=== PATIENT | female | born 1960 | race Caucasian/White ===

== ENCOUNTER → 2017-04-23 | Outpatient (CLI) | payer OTHER | LOC: RAD 13:46 | DX: Z12.31 Encounter for screening mammogram for malignant neoplasm of breast (principal) ==

== ENCOUNTER → 2017-05-08 | Outpatient (CLI) | payer OTHER | LOC: MRI 12:04 | DX: M23.304 Other meniscus derangements, unspecified medial meniscus, left knee (principal); M94.262 Chondromalacia, left knee ==

== ENCOUNTER → 2017-11-14 | Outpatient (CLI) | payer OTHER ==
[~2017-11-14] MED LIST: ACCUNEB SO1.25 MG/1 INH; ASPIRIN325 PO; ATIVAN0.5 MG PO; CENTRUM SILVER1 EAC4 PO; CLARITIN10 MG PO; CYCLOBENZAPRINE5 MG PO; HYDROCODONE-AP1 EAC6 PO; MS CONTIN15 MG PO; NEURONTIN 300300 M1 PO; OXYCODONE HCL30 MG PO; PROAIR HFA8.5 GM INH; WELLBUTRIN 100100 MG PO; ZANTAC 150MG T150 MG PO
== END ==
LOC: MRI 06:56 → CAT 07:58 → MRI 14:28
DX: D49.0 Neoplasm of unspecified behavior of digestive system (principal); K86.2 Cyst of pancreas; Z90.49 Acquired absence of other specified parts of digestive tract

== ENCOUNTER → 2017-12-02 | Outpatient (CLI) | payer OTHER | LOC: ULTRA 11:29 | DX: M79.605 Pain in left leg (principal); M79.89 Other specified soft tissue disorders ==

== ENCOUNTER 2018-02-26 05:23 | Inpatient (IN) | payer OTHER ==
[~2018-02-26] VITALS: Ht 160 cm; Wt 78.0 kg
--- NOTE | ~2018-02-26 | O ---
[facility] [place] [address] OPERATIVE REPORT Name: IZAIAH GUY Room #: 407-P [facility] IN M.R.#: [id number] Admission: 02/26/18 Attend Phys: Edil Ochoa MD Discharge: Date of : 60 Report #: [id number] THIS REPORT FOR: //name// CC: Foreign Ochoa DATE OF SERVICE: 02/26/2018 PREOPERATIVE DIAGNOSIS: Painful left medial compartment knee arthroplasty secondary to likely metal allergy. POSTOPERATIVE DIAGNOSIS: Painful left medial compartment knee arthroplasty secondary to likely metal allergy. PROCEDURE: Conversion of a left medial compartment knee arthroplasty to a total knee arthroplasty. SURGEON: Edil Ochoa MD. BREAKFAST HOST: Ashlyn Subramanian PA-C. INDICATIONS FOR ASSISTANCE: Throughout the case, extensive retraction and manipulation of the knee was required. This was afforded to me by my reproductive healthcare assistant. ANESTHESIA: LMA with an adductor canal block. IMPLANTS: [employer] size 5 Legion Oxinium posterior stabilized femur, a size 3 tibia, size 13 polyethylene and a size 32 patella. TOURNIQUET TIME: 85 minutes. ESTIMATED BLOOD LOSS: 25 mL. COMPLICATIONS: None. SPECIMENS: Intraoperative cultures as well as intraoperative frozen section was performed showing to have only 1 white cell per high powered field. CONDITION UPON LEAVING THE OR: Stable. INDICATION FOR PROCEDURE: The patient is a 57-year-old female who previously has undergone a left medial compartment arthroplasty using a [employer] [place] prosthesis. Ever since her surgery, she has had continued pain as well as symptoms consistent with allergic reaction including rashes, shortness of breath. She does have a history of asthma and questionable metal allergy. She was worked up by an pigment and lacquer mixer who felt that she was displaying allergic reaction [facility] [address] [place] [address] OPERATIVE REPORT Name: IZAIAH GUY Room #: 407-P [facility] IN ..#: [id number] Admission: 02/26/18 Attend Phys: Edil Ochoa MD Discharge: Date of : 60 Report #: [id number] to the metal implant. After discussion with she and her , she elected for removal of the implant and conversion to a total knee arthroplasty using Oxinium component and titanium plate. DESCRIPTION OF PROCEDURE: Risks, benefits, alternatives, complications were discussed in detail with the patient including but not limited to risk of anesthesia, risk of damage to nerves, arteries, blood vessels, risk for infection, bleeding, risk for continued knee pain, need for reoperation. Informed consent was obtained from the patient. Left knee was appropriately marked in the preoperative holding area. She was brought to the operating room and placed in supine position on operating room table. LMA anesthesia was induced without complication. Tourniquet was placed on the left thigh. Left lower extremity was prepped and draped in normal sterile fashion. Timeout was performed properly identifying the patient and procedure as well as instrumentation. All in the operating room were in agreement. Left lower extremity was exsanguinated, tourniquet was inflated. Tourniquet time was 85 minutes. The previous incision was used, and this was extended proximally and distally with a 10 blade, and dissection was taken down sharply to the fascia, and deep flaps were developed medially and laterally. Medial parapatellar arthrotomy was performed, and the cultures of the synovial fluid were taken. The synovial fluid appeared grossly normal. The medial gutter was reestablished, and the synovium from the medial as well as the suprapatellar pouch was resected and sent for intraoperative frozen section, which revealed one cell per high powered field. It was felt that we could then proceed with medial compartment arthroplasty. After this, the deep retractors were placed. The patella was everted, and the femoral component was removed with a combination of rigid and flexible osteotomes. Drill was used to gain access to the canal of the femur, and distal femoral cutting block was pinned in place and distal femoral cut was made. The femur was sized, found to be a size 5. The size 5, 4-in-1 cutting block was placed. Anterior, posterior and chamfer cuts were made. Tibia was then subluxed anteriorly, and the tibial component was removed with osteotomes, and a drill was used to gain access to the canal of the tibia. Resection was based off the lateral plateau. We did take two additional millimeters of the tibia to ensure that we had good tibial bone for a primary component. After this flexion and extension gaps were checked and found to have good balance in flexion and extension both medially and laterally at a size 13 spacer. Tibia was sized, found to be a size 3, a size 3 tibial trial was placed, size 5 femoral trial was placed and the box cut was made. This was trialed with a size 13 polyethylene and found to have good balance in flexion and extension, both medially and laterally. 9 mm was taken off the posterior surface of the patella and a size 32 patellar trial was placed. Knee was taken through range of motion, found to be stable, found to have good balance in flexion and extension and good patellar tracking. Trial components were removed. Bony ends were thoroughly irrigated with normal saline and final size 3 tibia and a size 5 Legion Oxinium posterior stabilized femur was cemented in place using standard cementation techniques. While the cement cured, a [address] [address] OPERATIVE REPORT Name: IZAIAH GUY Room #: 407-P [facility] IN ..#: [id number] Admission: 02/26/18 Attend Phys: Edil Ochoa MD Discharge: Date of : 60 Report #: [id number] periarticular injection consisting of morphine, ropivacaine, epinephrine and Toradol was placed around the knee joint. After the cement cured, tourniquet was deflated. Hemostasis was obtained with Bovie cautery. Final size 13 polyethylene was placed. 1 gram of vancomycin was placed deep in the knee joint. The fascia was closed with 0 Vicryl, skin was closed with 2-0 Vicryl, 3-0 Monocryl. Dermabond and TANA dressing was applied. The patient tolerated this procedure well and went to recovery room under care of Anesthesia postoperatively. <ELECTRONICALLY SIGNED> By: Edil Ochoa MD 02/27/18 1044 1634 1755 Edil Ochoa MD /nt
[~2018-02-26 05:23] MED LIST changes: -ASPIRIN325 PO; -CYCLOBENZAPRINE5 MG PO; -MS CONTIN15 MG PO; -NEURONTIN 300300 M1 PO; -OXYCODONE HCL30 MG PO
[2018-02-26 11:36] LABS: URINE BILIRUBIN NEGATIVE (Negative); URINE BLOOD NEGATIVE (Negative); URINE CLARITY CLEAR; URINE COLOR YELLOW; URINE GLUCOSE-RANDOM* NEGATIVE (Negative); URINE KETONES NEGATIVE (Negative); URINE LEUKOCYTES NEGATIVE (Negative); URINE NITRITE NEGATIVE (Negative); URINE PROTEIN (DIPSTICK) NEGATIVE (Negative); URINE UROBILINOGEN 0.2 E.U./dl (0.2-1.0)
[2018-02-26 11:59] LABS: HEMATOCRIT 40.8 % (37.0-47.0); MCH 29.3 pg (26.0-34.0); MCHC 34.2 g/dL (28.0-37.0); MCV 85.6 fL (80.0-100.0); RBC 4.77 mil/uL (4.20-5.00); RDW 15.3 % (10.5-14.5); WBC 4.3 thou/uL (4.0-11.0)
[2018-02-26 12:06] LABS: ALBUMIN 3.9 g/dL (3.4-5.0); CALCIUM 9.5 mg/dL (8.5-10.1); CREATININE 1.1 mg/dL (0.6-1.0); POTASSIUM 4.5 mmol/L (3.5-5.1)
[2018-02-26 12:09] LABS: PROTIME 9.6 Seconds (9.3-11.4)
[2018-02-26 12:29] VITALS: BP 111/80
[2018-02-26 16:45] VITALS: BP 150/99
[2018-02-26 20:17] VITALS: BP 121/76
[2018-02-27 05:13] VITALS: BP 94/64
[2018-02-27 05:50] LABS: HEMATOCRIT 35.4 % (37.0-47.0); HEMOGLOBIN 11.9 gm/dL (12.0-15.0); MCH 29.2 pg (26.0-34.0); MCHC 33.7 g/dL (28.0-37.0); MCV 86.6 fL (80.0-100.0); RBC 4.09 mil/uL (4.20-5.00); RDW 15.6 % (10.5-14.5); WBC 10.6 thou/uL (4.0-11.0)
[2018-02-27 08:07] VITALS: BP 93/57
[2018-02-27 12:18] VITALS: BP 93/57
== END 2018-02-27 14:40 | disposition home or self-care (01) | DRG 468 ==
LOC: 4N 05:23 → TBA 05:23 → PRE 08:04 → 4N 17:14
PROVIDERS: Orthopaedic Surgery
PROC: 0SRD069 Replacement of Left Knee Joint with Oxidized Zirconium on Polyethylene Synthetic Substitute, Cemented, Open Approach (ICD-10-PCS; principal; 2018-02-26)
PROC: 0SPD0JZ Removal of Synthetic Substitute from Left Knee Joint, Open Approach (ICD-10-PCS; principal; 2018-02-26)
DX: T84.84XA Pain due to internal orthopedic prosthetic devices, implants and grafts, initial encounter (principal); M17.12 Unilateral primary osteoarthritis, left knee; M72.2 Plantar fascial fibromatosis; M67.462 Ganglion, left knee; M22.41 Chondromalacia patellae, right knee; Z88.8 Allergy status to other drugs, medicaments and biological substances; Z88.6 Allergy status to analgesic agent; Z91.040 Latex allergy status; Y83.1 Surgical operation with implant of artificial internal device as the cause of abnormal reaction of the patient, or of later complication, without mention of misadventure at the time of the procedure; Y92.098 Other place in other non-institutional residence as the place of occurrence of the external cause
CPT/HCPCS: 10790; 50010; 50101; 50415; 50954; 51130; 51225; 51771; 53000; 53078; 53365; 54118; 56527; 56528; 57095; 62110; 62900; 64042; 70005

== ENCOUNTER 2018-03-03 19:00 | Inpatient (IN) | payer OTHER ==
[~2018-03-03] VITALS: Ht 160 cm; Wt 79.9 kg
--- NOTE | ~2018-03-03 | 2DMMODE ---
[facility] [address] [place] [address] 2 D/M-MODE ECHOCARDIOGRAM Name: IZAIAH GUY Room #: 455-P ADM IN .R.#: [id number] Admission: 03/03/18 Attend Phys: Milo Berg Discharge: Date of : 60 Date of Service: 03/05/18 1409 Report #: [id number] THIS REPORT FOR: //name// APPROVED REPORT Study performed: 03/05/2018 13:20:15 EXAM: Comprehensive 2D, Doppler, and color-flow Echocardiogram Patient Location: Echo lab Room #: [facility] Status: routine BSA: 1.83 HR: 80 bpm BP: 139/94 mmHg Rhythm: NSR Other Information Study Quality: Good Indications Dyspnea, chest pains. 2D Dimensions RVDd: 30.48 mm LVEF(%): 53.12 (>50%) IVSd: 9.27 (7-11mm) LVOT Diam: 21.21 (18-24mm) LVDd: 43.06 mm PWd: 9.23 (7-11mm) Ascending Ao: 31.78 (22-36mm) LVDs: 31.38 (25-40mm) Aortic Root: 31.76 mm Ballard's LVEF: 53.12 % Volumes Left Atrial Volume (Systole) Single Plane 4CH: 25.55 mL Single Plane 2CH: 35.89 mL LA ESV Index: 18.00 mL/m2 Aortic Valve AoV Peak Jorge L.: 1.31 m/s AO Peak Gr.: 6.91 mmHg LVOT Max P.25 mmHg LVOT Max V: 1.25 m/s RADHA Vmax: 3.36 cm2 Mitral Valve E/A Ratio: 1.2 MV Decel. Time: 180.[address] [facility] [place] [address] 2 D/M-MODE ECHOCARDIOGRAM Name: IZAIAH GUY Room #: 455-P [facility] IN .R.#: [id number] Admission: 03/03/18 Attend Phys: Milo Berg Discharge: Date of : 60 Date of Service: 03/05/18 1409 Report #: [id number] MV E Max Jorge L.: 1.12 m/s MV A Jorge L.: 0.90 m/s MV PHT: 52.23 ms IVRT: 72.66 ms Pulmonary Valve PV Peak Jorge L.: 1.04 m/s PV Peak Gr.: 4.29 mmHg Pulmonary Vein P Vein S: 0.63 m/s P Vein D: 0.34 m/s P Vein S/D Ratio: 1.85 Tricuspid Valve TR Peak Jorge L.: 2.46 m/s RAP Estimate: 5.00 mmHg TR Peak Gr.: 24.14 mmHg PA Pressure: 29.00 mmHg Left Ventricle The left ventricle is normal size. There is normal LV segmental wall motion. There is normal left ventricular wall thickness. Left ventricular systolic function is normal. LVEF is 55-60%. The left ventricular diastolic function is normal. Right Ventricle The right ventricle is normal size. The right ventricular systolic function is normal. Atria The left atrium size is normal. The right atrium size is normal. Aortic Valve The aortic valve is normal in structure. No aortic regurgitation is present. There is no aortic valvular stenosis. Mitral Valve The mitral valve is normal in structure. Trace to mild mitral regurgitation. No evidence of mitral valve stenosis. Tricuspid Valve The tricuspid valve is normal in structure. Mild tricuspid regurgitation. Estimated PAP is 30mmHg. Pulmonic Valve The pulmonary valve is normal in structure. There is no pulmonic [place] [id number] 2 D/M-MODE ECHOCARDIOGRAM Name: IZAIAH GUY Room #: 455-P [facility] IN [facility]#: [id number] Admission: 03/03/18 Attend Phys: Milo Berg Discharge: Date of : 60 Date of Service: 03/05/18 1409 Report #: [id number] valvular regurgitation. Great Vessels The aortic root is normal in size. IVC is normal in size and collapses >50% with inspiration. Pericardium There is no pericardial effusion. <Conclusion> The left ventricle is normal size. LVEF is 55-60%. The aortic valve is normal in structure. The mitral valve is normal in structure. Trace to mild mitral regurgitation. The tricuspid valve is normal in structure. Mild tricuspid regurgitation. Estimated PAP is 30mmHg. The pulmonary valve is normal in structure. There is no pericardial effusion. <ELECTRONICALLY SIGNED> By: Umair Concepcion MD 03/05/18 1409 1409 1409 Umair Concepcion MD /INF
--- NOTE | ~2018-03-03 | SPIROMETRY ---
[facility] [place] [address] SPIROMETRY Name: IZAIAH GUY Room #: 455-P [facility] IN .#: [id number] Admission: 03/03/18 Attend Phys: Milo Henson MD Discharge: 03/06/18 Date of : 60 Report #: [id number] THIS REPORT FOR: //name// >> SPIROMETRY: (BTPS) Height: 62 in cm Weight: 161 lbs kg Exam Date: 03/05/18 PRE-RX POST-RX PRED BEST %PRED BEST %PRED %CHG FVC LITERS . 2.81 . 2.54 . 90 . 2.59 . 92 . 2 FEV1 LITERS . 2.31 . 1.97 . 85 . 2.02 . 87 . 3 FEV1/FVC % . 82 . 78 . 95 . 78 . 95 . 1 XHS16-64% L/Sec . 2.54 . 1.72 . 68 . 1.80 . 71 . 5 PEF L/SEC . 5.53 . 6.11 . 110 . 6.35 . 115 . 4 FEF50/FIF50 UNITLESS . . . . . . >> INTERPRETATION/IMPRESSION: CC: Foreign Henson DATE OF SERVICE: 03/05/2018 SPIROMETRY REPORT DATE OF STUDY: 03/05/2018. NOTATION: Spirometry pre-bronchodilator and post-bronchodilator reveals normal spirometry. No significant change with bronchodilators. <ELECTRONICALLY SIGNED> By: Tristan Manning MD 03/13/18 0909 Tristan Manning MD /nt
--- NOTE | ~2018-03-03 | EKG ---
[place] [address] [facility] [place] [address] ELECTROCARDIOGRAM REPORT Name: IZAIAH GUY Room #: 455-P [facility] IN .R.#: [id number] Admission: 03/03/18 Attend Phys: Milo Henson Discharge: Date of : 60 Report #: [id number] THIS REPORT FOR: //name// [facility] ED Test Date: 2018-03-03 Test Time: 19:32:37 Pat Name: IZAIAH GUY Department: Room: Gender: F Senior Mobile Developer: BENITO : 1960 Requested By: Amparo Joe Order Number: [id number] MD: Govind Peace Measurements Intervals [place] Rate: 92 P: 44 DE: 143 QRS: 46 QRSD: 77 T: 49 QT: 335 QTc: 415 Interpretive Statements Sinus rhythm RSR' in V1 or V2, probably normal variant No previous ECG available for comparison Electronically Signed On 03-04-2018 8:01:25 CDT by Govind Peace [email or web address] <ELECTRONICALLY SIGNED> By: Govind Peace MD, [facility] 03/04/18 0801 31 31 Govind Peace MD, FACC /EPI
[2018-03-03 19:28] VITALS: BP 123/82
[2018-03-03 19:56] LABS: ABSOLUTE NEUTROPHILS 3.1 thou/uL (1.4-8.2); EOSINOPHILS 3.9 % (0.0-3.0); HEMATOCRIT 30.5 % (37.0-47.0); HEMOGLOBIN 10.7 gm/dL (12.0-15.0); LYMPHOCYTES 32.5 % (24.0-44.0); MCHC 35.3 g/dL (28.0-37.0); MCV 85.1 fL (80.0-100.0); MONOCYTES 10.3 % (1.0-8.0); PLATELET COUNT 268 thou/uL (150-400); POLYS 52.3 % (36.0-66.0); RBC 3.58 mil/uL (4.20-5.00); RDW 15.3 % (10.5-14.5)
[2018-03-03 20:00] LABS: ANION GAP 7 mmol/L (7-16); BUN 9 mg/dL (7-18); CALCIUM 9.6 mg/dL (8.5-10.1); CHLORIDE 103 mmol/L (98-107); CO2 27 mmol/L (21-32); CREATININE 1.1 mg/dL (0.6-1.0); GLUCOSE 108 mg/dL (74-106); POTASSIUM 3.9 mmol/L (3.5-5.1); SODIUM 137 mmol/L (136-145)
[2018-03-03 20:06] LABS: PROTIME 9.4 Seconds (9.3-11.4)
[2018-03-03 20:08] LABS: ALBUMIN 3.4 g/dL (3.4-5.0); SGOT 19 U/L (15-37); SGPT 19 U/L (30-65); TOTAL BILIRUBIN 0.6 mg/dL (<0.1-1.0); TROPONIN-I < 0.04 ng/mL (<0.06)
[2018-03-03] MEDS ORDERED: MS CONTIN15 MG PO (21:40)
[2018-03-03] MEDS ORDERED: NEURONTIN 300300 M1 PO (21:40)
[2018-03-03] MEDS ORDERED: ASPIRIN325 PO (21:41)
[2018-03-03 22:02] VITALS: BP 119/74
[2018-03-03 22:23] VITALS: BP 119/74
[2018-03-03 23:00] VITALS: BP 131/77
[2018-03-04 03:34] VITALS: BP 116/71
[2018-03-04 05:14] LABS: HEMATOCRIT 30.4 % (37.0-47.0); HEMOGLOBIN 10.3 gm/dL (12.0-15.0); MCH 29.5 pg (26.0-34.0); MCHC 33.8 g/dL (28.0-37.0); MCV 87.2 fL (80.0-100.0); RBC 3.49 mil/uL (4.20-5.00); RDW 15.7 % (10.5-14.5); WBC 4.9 thou/uL (4.0-11.0)
[2018-03-04 05:21] LABS: CREATININE 0.9 mg/dL (0.6-1.0); POTASSIUM 4.3 mmol/L (3.5-5.1)
[2018-03-04 08:00] VITALS: BP 102/67
[2018-03-04 16:00] VITALS: BP 122/75
[2018-03-04 19:41] VITALS: BP 122/67
[2018-03-05 04:00] VITALS: BP 119/86
[2018-03-05 08:00] VITALS: BP 139/94
[2018-03-05 16:00] VITALS: BP 134/80
[2018-03-05 20:05] VITALS: BP 108/60
[2018-03-06 03:19] VITALS: BP 122/76
[2018-03-06 08:23] VITALS: BP 109/72
[2018-03-06] MEDS ORDERED: CYCLOBENZAPRINE5 MG PO (10:58)
[2018-03-06] MEDS ORDERED: OXYCODONE HCL30 MG PO (10:59)
[2018-03-06 13:45] VITALS: BP 109/72
[2018-03-06 20:00] VITALS: BP 106/66
== END 2018-03-06 15:30 | disposition home or self-care (01) | DRG 560 ==
LOC: ER 19:00 → 4W 21:49 → EROBS 21:49 → 4W 23:26 → ENTRNSPT 03-06 15:19 → EDTRNSPTSTS 03-06 15:21 → 4W 03-06 15:30
PROVIDERS: Nurse Practitioner Family; Physician Assistant
DX: T84.84XA Pain due to internal orthopedic prosthetic devices, implants and grafts, initial encounter (principal); E44.1 Mild protein-calorie malnutrition; K21.9 Gastro-esophageal reflux disease without esophagitis; F32.9 Major depressive disorder, single episode, unspecified; F41.9 Anxiety disorder, unspecified; Z96.652 Presence of left artificial knee joint; J45.909 Unspecified asthma, uncomplicated; I10 Essential (primary) hypertension; F17.210 Nicotine dependence, cigarettes, uncomplicated; E78.5 Hyperlipidemia, unspecified; Z90.49 Acquired absence of other specified parts of digestive tract; Z79.82 Long term (current) use of aspirin; Z90.710 Acquired absence of both cervix and uterus; Z88.8 Allergy status to other drugs, medicaments and biological substances; Z88.6 Allergy status to analgesic agent; Z91.040 Latex allergy status; Z79.899 Other long term (current) drug therapy; Y83.8 Other surgical procedures as the cause of abnormal reaction of the patient, or of later complication, without mention of misadventure at the time of the procedure; Y92.89 Other specified places as the place of occurrence of the external cause
CPT/HCPCS: 10040

== ENCOUNTER → 2020-04-13 | Outpatient (CLI) | payer BC ==
[~2020-04-13] MED LIST changes: +ASPIRIN325 PO; +ATIVAN0.5 M1 PO; +COPPER PO; +CYCLOBENZAPRINE5 MG PO; +MS CONTIN15 MG PO; +NEURONTIN 300300 M1 PO; +OXYCODONE HCL30 MG PO; +PROTONIX40 M1 PO; +TYLENOL EXTRA500 MG PO; +ZINC PO
== END ==
LOC: NUC 09:40
PROVIDERS: ATTEND Orthopaedic Surgery
DX: T84.84XA Pain due to internal orthopedic prosthetic devices, implants and grafts, initial encounter (principal); Z96.652 Presence of left artificial knee joint; X58.XXXA Exposure to other specified factors, initial encounter; Y93.89 Activity, other specified; Y92.89 Other specified places as the place of occurrence of the external cause; Y99.8 Other external cause status